=== PATIENT | female | born 1995 | race Caucasian/White ===

== ENCOUNTER 2018-05-24 19:25 | Emergency (ER) | payer OTHER ==
[~2018-05-24] VITALS: Ht 167.6 cm; Wt 50.8 kg
[~2018-05-24 19:25] MED LIST: ACEASPCAF PO; AMOCLA500 PO; CEPH500 PO; CODACE30 PO; CODGUAEL PO; Cleocin HCl300 MG PO; HYDACE5 PO; HYDHCL10 PO; HYDR1TAB94 PO; IBUP600 PO; LEVFLO500 PO; ONDA4 PO; PERM5TC TOP; Percocet 5-3251 EACH PO; RXONDA4ODT MM; RXOXYACE PO
== END 2018-05-24 20:29 | disposition home or self-care (01) ==
LOC: ER 19:25
DX: S91.001D Unspecified open wound, right ankle, subsequent encounter (principal)
CPT/HCPCS: 99282

== ENCOUNTER → 2018-12-12 | Outpatient (CLI) | payer OTHER ==
[2018-12-13 22:06] LABS: CHLAMYDIA TRACHOMATIS, NAA Negative (Negative); NEISSERIA GONORRHOEAE, NAA Negative (Negative)
== END | disposition home or self-care (01) ==
LOC: LAB SHORT 15:00 → LAB 15:00
PROVIDERS: Obstetrics & Gynecology
DX: Z11.3 Encounter for screening for infections with a predominantly sexual mode of transmission (principal)
CPT/HCPCS: 87491; 87591

== ENCOUNTER → 2019-10-30 | Outpatient (CLI) | payer OTHER ==
[~2019-10-30] MED LIST changes: +KEFLEX500 MG PO
[2019-10-31 10:40] LABS: Candida species (DNA Probe) Negative (NEGATIVE); G. vaginalis (DNA Probe) Positive (NEGATIVE); T. vaginalis (DNA Probe) Negative (NEGATIVE)
== END ==
LOC: LAB SHORT 19:01 → LAB 19:01
PROVIDERS: Registered Nurse Community Health
DX: N89.8 Other specified noninflammatory disorders of vagina (principal)
CPT/HCPCS: 87480; 87510; 87660

== ENCOUNTER 2019-12-30 12:41 | Emergency (ER) | payer OTHER ==
[~2019-12-30] VITALS: Ht 167.6 cm; Wt 52.2 kg
[2019-12-30 12:59] LABS: Source, Urine Clean Catch
[2019-12-30 13:03] LABS: Bilirubin, Urine Neg (Neg); Blood, Urine 5+ (Neg); Glucose Qualitative, Urine Neg (Neg); Ketones, Urine 4+ (Neg); Leukocyte Esterase, Urine 3+ (Neg); Nitrite, Urine Pos (Neg); Protein, Urine 3+ (Neg); Urobilinogen, Urine NORM (Normal)
[2019-12-30 13:09] LABS: Appearance, Urine Hazy (Clear); Color, Urine Yellow (P-Yellow)
[2019-12-30 13:10] LABS: Bacteria Many /hpf; Squamous Epithelial Cells Mod /hpf (Few); White Blood Cells, Urine 25-50 /hpf (0-5)
[2019-12-30 13:47] LABS: BASOPHILS ABSOLUTE AUTO 0.03 K/mm3 (0.00-0.23); BASOPHILS PERCENT AUTO 0 % (0-2); EOSINOPHILS ABSOLUTE AUTO 0.01 K/mm3 (0.00-0.68); EOSINOPHILS PERCENT AUTO 0 % (0-6); Hematocrit 37.6 % (33.0-51.0); Hemoglobin 12.5 g/dL (11.5-16.0); IMMATURE GRAN ABSOLUTE AUTO 0.03 K/mm3 (0.00-0.10); IMMATURE GRAN PERCENT AUTO 0 % (0-1); LYMPHOCYTES ABSOLUTE AUTO 0.53 K/mm3 (0.84-5.20); LYMPHOCYTES PERCENT AUTO 6 % (21-46); MONOCYTES ABSOLUTE AUTO 0.68 K/mm3 (0.16-1.47); MONOCYTES PERCENT AUTO 8 % (4-13); Mean Corpuscular HGB 31.8 pg (26.0-34.0); Mean Corpuscular HGB Conc 33.2 g/dL (31.5-36.5); Mean Corpuscular Volume 96 fL (80-100); Mean Platelet Volume 9.7 fL (9.1-12.4); NEUTROPHILS ABSOLUTE AUTO 7.46 K/mm3 (1.96-9.15); NEUTROPHILS PERCENT AUTO 85 % (41-73); Platelet Count 257 K/mm3 (150-400); RDW Standard Deviation 42.5 fL (35.1-46.3); Red Blood Cell Count 3.93 M/mm3 (3.80-5.20); White Blood Cell Count 8.74 K/mm3 (4.00-11.30)
[2019-12-30 14:04] LABS: Alanine Aminotransfer (ALT/SGP 52 U/L (12-78); Albumin, Blood 3.5 g/dL (3.4-5.0); Albumin/Globulin Ratio 0.9 (0.8-1.8); Alk Phos 45 U/L (50-136); Anion Gap 6 mmol/L (6-16); Aspartate Aminotrans (AST/SGOT 25 U/L (12-37); Blood Urea Nitrogen 9 mg/dL (8-24); Bun/Creatinine Ratio 13.8 (12.0-20.0); CO2, Blood 26 mmol/L (21-32); Calcium, Blood 8.8 mg/dL (8.5-10.1); Chloride, Blood 103 mmol/L (98-108); Creatinine, Blood 0.65 mg/dL (0.40-1.00); Glomerular Filtration Rate >60 (60-); Glucose, Blood 176 mg/dL (70-99); Potassium, Blood 3.3 mmol/L (3.5-5.5); Sodium, Blood 135 mmol/L (136-145); Total Protein, Blood 7.5 g/dL (6.4-8.2)
[2019-12-30] MEDS ORDERED: CEFP200 PO (14:05)
[2019-12-30] MEDS ORDERED: CIPR500 PO (15:31)
[2019-12-30] MEDS ORDERED: Norco 7.5-3251 EACH PO (15:31)
== END 2019-12-30 15:48 | disposition home or self-care (01) ==
LOC: ER 12:41
PROVIDERS: Emergency Medicine
DX: N20.0 Calculus of kidney (principal)
CPT/HCPCS: 76700; 76857; 80053; 81001; 83690; 84703; 85025; 87077; 87086; 87186; 96365; 96375; 99284-25; J0696; J1885; J2405; J3010

== ENCOUNTER → 2020-02-20 | Outpatient (CLI) | payer OTHER ==
[~2020-02-20] MED LIST changes: +CEFP200 PO; +CIPR500 PO; +Norco 7.5-3251 EACH PO
[2020-02-20 20:15] LABS: Candida species (DNA Probe) Negative (NEGATIVE); G. vaginalis (DNA Probe) Positive (NEGATIVE); T. vaginalis (DNA Probe) Negative (NEGATIVE)
[2020-02-21 10:08] LABS: HIV SCREEN 4TH GENERATION WRFX Non Reactive (Non Reactive)
[2020-02-21 23:09] LABS: CHLAMYDIA TRACHOMATIS, NAA Positive (Negative); NEISSERIA GONORRHOEAE, NAA Negative (Negative)
== END | disposition home or self-care (01) ==
LOC: LAB SHORT 18:41 → LAB 18:41
PROVIDERS: Family Medicine
DX: N89.8 Other specified noninflammatory disorders of vagina (principal); Z20.2 Contact with and (suspected) exposure to infections with a predominantly sexual mode of transmission
CPT/HCPCS: 86592; 87070; 87205; 87389; 87480; 87491; 87510; 87591; 87660

== ENCOUNTER 2020-11-26 19:38 | Emergency (ER) | payer OTHER ==
[~2020-11-26] VITALS: Ht 167.6 cm; Wt 52.2 kg
[2020-11-26] MEDS ORDERED: Bactrim Ds Tab1 EACH PO (19:47)
== END 2020-11-26 19:46 | disposition home or self-care (01) ==
LOC: ER 19:38
DX: L08.9 Local infection of the skin and subcutaneous tissue, unspecified (principal); S40.812A Abrasion of left upper arm, initial encounter; S40.811A Abrasion of right upper arm, initial encounter; V00.131A Fall from skateboard, initial encounter
CPT/HCPCS: 99282

== ENCOUNTER → 2022-01-12 | Outpatient (CLI) | payer OTHER ==
[~2022-01-12] MED LIST changes: +Bactrim Ds Tab1 EACH PO
== END | disposition home or self-care (01) ==
LOC: LAB 15:54 → LAB SHORT 15:54
DX: L02.91 Cutaneous abscess, unspecified (principal)
CPT/HCPCS: 87070; 87075; 87077; 87147; 87186; 87205

== ENCOUNTER 2022-02-27 01:50 | Emergency (ER) | payer OTHER ==
[~2022-02-27] VITALS: Ht 165.1 cm; Wt 49.9 kg
== END 2022-02-27 03:48 | disposition home or self-care (01) ==
LOC: ER 01:50
DX: S31.41XA Laceration without foreign body of vagina and vulva, initial encounter (principal); W22.8XXA Striking against or struck by other objects, initial encounter
CPT/HCPCS: 10140; 96372-59; 99282-25; A9270; J1885; J3010

== ENCOUNTER → 2022-09-07 | Outpatient (CLI) | payer OTHER | LOC: LAB SHORT 08:58 → LAB 08:58 | DX: D48.5 Neoplasm of uncertain behavior of skin (principal) | CPT/HCPCS: 88305 ==

== ENCOUNTER → 2022-09-14 | Outpatient (CLI) | payer OTHER | LOC: LAB SHORT 14:51 → LAB 14:51 | DX: L03.312 Cellulitis of back [any part except buttock and flank] (principal) | CPT/HCPCS: 87070; 87077; 87147; 87186; 87205 ==

== ENCOUNTER 2022-09-27 15:48 | Emergency (ER) | payer OTHER ==
[~2022-09-27] VITALS: Ht 167.6 cm; Wt 51.3 kg
[2022-09-27 16:17] VITALS: BP 152/100
[2022-09-27] MEDS ORDERED: Prednisone20 MG PO (19:15)
[2022-09-27] MEDS ORDERED: AMOCLA875 PO (19:15)
== END 2022-09-27 19:22 | disposition home or self-care (01) ==
LOC: ER 15:48
DX: T78.3XXA Angioneurotic edema, initial encounter (principal); K04.7 Periapical abscess without sinus; X58.XXXA Exposure to other specified factors, initial encounter
CPT/HCPCS: 99282; A9270; J7512

== ENCOUNTER 2024-11-23 04:06 | Emergency (ER) | payer OTHER ==
[~2024-11-23] VITALS: Ht 165.1 cm; Wt 52.2 kg
[~2024-11-23 04:06] MED LIST changes: +AMOCLA875 PO; +Prednisone20 MG PO
[2024-11-23 04:20] VITALS: BP 147/97
[2024-11-23] MEDS ORDERED: BENADRYL25 M1 PO (04:34)
[2024-11-23] MEDS ORDERED: Dexamethasone Sod Phos 10 MG/ML 1ML VIAL PO ONE (04:35)
== END 2024-11-23 04:53 | disposition home or self-care (01) ==
LOC: ER 04:06
DX: L50.0 Allergic urticaria (principal)
CPT/HCPCS: 99282; A9270; J1100

== ENCOUNTER 2024-12-26 15:15 | Emergency (ER) | payer OTHER ==
[~2024-12-26] VITALS: Ht 165.1 cm; Wt 51.3 kg
[~2024-12-26 15:15] MED LIST changes: +BENADRYL25 M1 PO
[2024-12-26 15:27] VITALS: BP 146/105
[2024-12-26] MEDS ORDERED: Trimethoprim/Sulfamethoxazole DS Tab PO ONE (15:35)
[2024-12-26] MEDS ORDERED: HYDPAM50 PO (15:40)
[2024-12-26] MEDS ORDERED: BACTRIM DS TAB1 EAC1 PO (15:40)
== END 2024-12-26 15:47 | disposition home or self-care (01) ==
LOC: ER 15:15
DX: F41.9 Anxiety disorder, unspecified (principal); L08.89 Other specified local infections of the skin and subcutaneous tissue; B95.8 Unspecified staphylococcus as the cause of diseases classified elsewhere; Z86.14 Personal history of Methicillin resistant Staphylococcus aureus infection
CPT/HCPCS: 99282; A9270

== ENCOUNTER 2025-03-25 22:56 | Emergency (ER) | payer OTHER ==
[~2025-03-25] VITALS: Ht 165.1 cm; Wt 48.5 kg
[~2025-03-25 22:56] MED LIST changes: +BACTRIM DS TAB1 EAC1 PO; +HYDPAM50 PO
[2025-03-25 23:20] VITALS: BP 150/110
[2025-03-26] MEDS ORDERED: RX Prepack 6 Tabs Oxycodone 5mg UD ONE (00:35)
[2025-03-26] MEDS ORDERED: Ketorolac Tromethamine 15mg Vial IM ONE (00:35)
[2025-03-26] MEDS ORDERED: ACET500 PO (00:36)
[2025-03-26] MEDS ORDERED: IBU600 M1 PO (00:36)
== END 2025-03-26 00:58 | disposition home or self-care (01) ==
LOC: ER 22:56
DX: M25.511 Pain in right shoulder (principal); Z79.899 Other long term (current) drug therapy
CPT/HCPCS: 73030; 96372; 99283-25; A9270; J1885